=== PATIENT | female | born 1980 | race Caucasian/White ===

== ENCOUNTER 2018-04-30 16:07 | Emergency (ER) | payer OTHER ==
--- NOTE | 2018-04-30 16:50 | EDPHY ---
H & P Time Seen by Provider: 04/30/18 16:42 HPI/ROS: CHIEF COMPLAINT: Anxiety HISTORY OF PRESENT ILLNESS: Patient is a 30-year-old female with a history of anxiety the presents emergency department feeling anxious. The patient states that she has had multiple anxiety attacks over the past few days. She was seen initially by [facility] and that the crisis [facility]. She was sent to the emergency department for medical screening in order to be placed for her anxiety. She denies any suicidal ideation or homicidal ideation. Patient denies drug use. She denies alcohol. REVIEW OF SYSTEMS: 10 systems were reveiwed and are negative with the exception of the elements mentioned in the history of present illness. Past Medical/Surgical History: Includes anxiety Social history: Patient does not smoke. She denies drug use Smoking Status: Former smoker Physical Exam: Vitals noted GENERAL: Well-appearing, in no acute distress, alert. HEENT: Eyes normal to inspection, normal pharynx, no signs of dehydration. NECK: Normal, supple. RESPIRATORY: Clear to auscultation bilaterally, no rales, rhonchi or wheezing. CVS: Regular rate and rhythm, no rubs, murmurs, or gallops. ABDOMEN: Soft, nontender, nondistended, no organomegaly. BACK: Normal to inspection, no CVA tenderness. SKIN: Normal color, no rash, warm, dry. No pallor. EXTREMITIES: No pedal edema, no calf tenderness, no Homans sign or cords, no joint swelling. NEURO/PSYCH: Alert and oriented, normal mood and affect, normal motor sensory exam. No obvious cranial nerve deficit. Constitutional: Initial Vital Signs Temperature (C) 37 C 04/30/18 16:15 Heart Rate 75 04/30/18 16:15 Respiratory Rate 18 04/30/18 16:15 Blood Pressure 124/73 H 04/30/18 16:15 O2 Sat (%) 93 04/30/18 16:15 O2 Delivery Mode Room Air Allergies/Adverse Reactions: buspirone [From BuSpar] Allergy (Verified 04/30/18 16:14) sertraline [From Zoloft] Allergy (Verified 04/30/18 16:14) tramadol [From Ultram] Allergy (Verified 04/30/18 16:14) Home Medications: Medication Instructions Recorded Hydroxyzine HCl 04/30/18 Xanax 04/30/18 Medical Decision Making ED Course/Re-evaluation: In the emergency department I discussed possible etiologies with the patient. I answered all her questions. An IV was placed. Laboratory studies were obtained. CBC, chemistry and tox screen is negative. Staff was notified of the medical clearance. Differential Diagnosis: My differential includes but is not limited to anxiety, depression, psychosis - Data Points Laboratory Results: Laboratory Results 04/30/18 17:17 04/30/18 17:17 04/30/18 04/30/18 04/30/18 17:17 17:17 17:17 WBC 7.75 10^3/uL 10^3/uL (3.80-9.50) RBC 4.04 10^6/uL L 10^6/uL (4.18-5.33) Hgb 13.5 g/dL g/dL (12.6-16.3) Hct 39.7 % % (38.0-47.0) MCV 98.3 fL fL (81.5-99.8) MCH 33.4 pg pg (27.9-34.1) MCHC 34.0 g/dL g/dL (32.4-36.7) RDW 13.7 % % (11.5-15.2) Plt Count 164 10^3/uL 10^3/uL (150-400) MPV 11.2 fL fL (8.7-11.7) Neut % (Auto) 59.3 % % (39.3-74.2) Lymph % (Auto) 27.5 % % (15.0-45.0) Winston % (Auto) 11.4 % % (4.5-13.0) Eos % (Auto) 1.0 % % (0.6-7.6) Baso % (Auto) 0.5 % % (0.3-1.7) Nucleat RBC Rel Count 0.0 % % (0.0-0.2) Absolute Neuts (auto) 4.60 10^3/uL 10^3/uL (1.70-6.50) Absolute Lymphs (auto) 2.13 10^3/uL 10^3/uL (1.00-3.00) Absolute Monos (auto) 0.88 10^3/uL H 10^3/uL (0.30-0.80) Absolute Eos (auto) 0.08 10^3/uL 10^3/uL (0.03-0.40) Absolute Basos (auto) 0.04 10^3/uL 10^3/uL (0.02-0.10) Absolute Nucleated RBC 0.00 10^3/uL 10^3/uL (0-0.01) Immature Gran % 0.3 % % (0.0-1.1) Immature Gran # 0.02 10^3/uL 10^3/uL (0.00-0.10) Sodium 138 mEq/L mEq/L (135-145) Potassium 4.1 mEq/L mEq/L (3.5-5.2) Chloride 109 mEq/L mEq/L (97-110) Carbon Dioxide 20 mEq/l L mEq/l (22-31) Anion Gap 9 mEq/L mEq/L (6-14) BUN 17 mg/dL mg/dL (7-23) Creatinine 0.6 mg/dL mg/dL (0.6-1.0) Estimated GFR > 60 Glucose 98 mg/dL mg/dL (70-100) Calcium 8.9 mg/dL mg/dL (8.5-10.4) Urine Opiates Screen NEGATIVE (NEGATIVE) Urine Barbiturates NEGATIVE (NEGATIVE) Ur Phencyclidine Scrn NEGATIVE (NEGATIVE) Ur Amphetamine Screen NEGATIVE (NEGATIVE) U Benzodiazepines Scrn NEGATIVE (NEGATIVE) Urine Cocaine Screen NEGATIVE (NEGATIVE) U Marijuana (THC) Screen NEGATIVE (NEGATIVE) Ethyl Alcohol < 10 mg/dL mg/dL (0-10) Departure - Departure Disposition: Home, Routine, Self-Care Clinical Impression: Anxiety Condition: Good Instructions: Anxiety (ED) Additional Instructions: Return with increasing anxiety or any other concerns. Referrals: [facility],. [Clinic] - 5-7 days, call for appt.
[2018-04-30 17:55] LABS: PLATELET COUNT 164 10^3/uL (150-400)
[2018-04-30 22:17] VITALS: BP 103/78
== END 2018-04-30 22:13 | disposition home or self-care (01) ==
DX: F41.9 Anxiety disorder, unspecified (principal); Z59.0 Homelessness
CPT/HCPCS: 80305; G0480

== ENCOUNTER 2018-05-12 15:08 | Emergency (ER) | payer MEDICAID ==
[2018-05-12] MEDS ORDERED: DEXAMETHASONE 4 MG/ML VIAL IVP ONE (15:24)
[2018-05-12] MEDS ORDERED: CYCLOBENZAPRINE 10 MG TAB PO ONE (15:24)
[2018-05-12] MEDS ORDERED: LIDOCAINE 4%/MENTHOL 1% PATCH TD ONE (15:24)
[2018-05-12] MEDS ORDERED: KETOROLAC 15 MG/1 ML SDV IVP/IM ONE (15:24)
[2018-05-12] MEDS ORDERED: NS 1,000 ML IV ONE (15:24)
[2018-05-12 15:25] VITALS: BP 112/72
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
--- NOTE | 2018-05-12 15:45 | EDPHY ---
General Time Seen by Provider: 05/12/18 15:09 Initial Vital Signs: Initial Vital Signs Temperature (C) 37.1 C 05/12/18 15:11 Heart Rate 109 H 05/12/18 15:11 Respiratory Rate 18 05/12/18 15:11 Blood Pressure 112/72 05/12/18 15:11 O2 Sat (%) 96 05/12/18 15:11 O2 Delivery Mode Room Air Allergies/Adverse Reactions: buspirone [From BuSpar] Allergy (Verified 04/30/18 20:36) sertraline [From Zoloft] Allergy (Verified 04/30/18 20:36) tramadol [From Ultram] Allergy (Verified 04/30/18 20:36) Home Medications: Medication Instructions Recorded NK [No Known Home Meds] 04/30/18 Departure - Departure Referrals: NONE *PRIMARY CARE P,. [Primary Care Provider] - As per Instructions
[2018-05-12] MEDS ORDERED: HYDROmorphONE/DILAUDID 2 MG/ML INJ IVP ONE (16:33)
[2018-05-12] MEDS ORDERED: PATCH REMOVAL 1 EA PATCH TD SCH (21:00)
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
== END 2018-05-12 18:18 | disposition home or self-care (01) ==
LOC: EDUNIT#
DX: G43.809 Other migraine, not intractable, without status migrainosus (principal); E86.9 Volume depletion, unspecified; F43.10 Post-traumatic stress disorder, unspecified; F41.8 Other specified anxiety disorders; Z59.0 Homelessness
CPT/HCPCS: 96374; J1100; J1170; J1885

== ENCOUNTER 2018-06-19 10:54 | Emergency (ER) | payer MEDICAID ==
--- NOTE | 2018-06-19 11:17 | EDPHY ---
H & P Stated Complaint: LLQ/Lflank pain Time Seen by Provider: 06/19/18 11:11 HPI/ROS: CHIEF COMPLAINT: Left lower quadrant pain since this morning "I think I might be " HISTORY OF PRESENT ILLNESS: 38-year-old homeless female, , last menstrual period 2 months ago, complaining of left lower quadrant pain since this morning , think she may be . No vaginal bleeding or discharge. No urinary abnormality such as dysuria hematuria increased frequency. No back or flank pain. No nausea or vomiting. [PRIMARY CARE PROVIDER:][[facility] ] REVIEW OF SYSTEMS: [10 systems reviewed and negative with the exception of the elements mentioned in the history of present illness] [PAST MEDICAL & SURGICAL HISTORY:] [ ] SOCIAL HISTORY:[ Homeless ] PHYSICAL EXAM (Prior to examination, patient consented to physical exam, hands were washed and my usual and customary physical exam procedures followed) 1) GENERAL: [Well-developed, well-nourished, alert and oriented. Appears to be in no acute distress.] 2) HEAD: [Normocephalic, atraumatic] 3) HEENT: [Pupils equal, round, reactive to light bilaterally. Sclera anicteric. ] [Nasopharynx, oropharynx, clear, no lesions. ][Moist][Dry] mucous membranes. [Ears bilaterally with normal tympanic membranes.] 4) NECK: [Full range of motion, no meningeal signs.] 5) LUNGS: [Clear auscultation bilaterally, no wheezes, no rhonchi, no retractions.] 6) HEART: [Regular rate and rhythm, no murmur, no heave, no gallop.] 7) ABDOMEN: [No guarding, no rebound, no focal tenderness, negative McBurney's, negative Teran's, negative Rovsing's, negative peritoneal sign], 8) MUSCULOSKELETAL: [Moving all extremities, no focal areas of tenderness, no obvious trauma. No peripheral edema or discoloration.] 9) BACK: [No CVA tenderness, no midline vertebral tenderness, no fluctuance, no step-off, no obvious trauma, no visual or palpable abnormality.] 10) SKIN: [No rash, no petechiae.] [11) Psychiatric: Patient is oriented X 3, there is no agitation.] DIFFERENTIAL DIAGNOSIS: [In no particular order including but not limited to ovarian torsion, ovarian cyst, ectopic , intrauterine ] - Personal History Current Tetanus/Diphtheria Vaccine: Yes Tetanus Vaccine Date: April 2017 - Medical/Surgical History Hx Asthma: Yes Hx Chronic Respiratory Disease: Yes Hx Diabetes: No Hx Cardiac Disease: Yes Hx Renal Disease: No Hx Cirrhosis: No Hx Alcoholism: Yes Hx HIV/AIDS: No Hx Splenectomy or Spleen Trauma: No Other PMH: choly, PTSD, anxiety, depression, bronchitis, COPD, - Social History Smoking Status: Former smoker Constitutional: Initial Vital Signs Temperature (C) 36.7 C 06/19/18 11:00 Heart Rate 89 06/19/18 11:00 Respiratory Rate 16 06/19/18 11:00 Blood Pressure 116/75 06/19/18 11:00 O2 Sat (%) 99 06/19/18 11:00 O2 Delivery Mode Room Air Allergies/Adverse Reactions: buspirone [From BuSpar] Allergy (Verified 06/19/18 11:00) codeine Allergy (Verified 06/19/18 11:00) sertraline [From Zoloft] Allergy (Verified 06/19/18 11:00) tramadol [From Ultram] Allergy (Verified 06/19/18 11:00) Home Medications: Medication Instructions Recorded Ibuprofen 600 mg PO Q8 PRN #12 tablet 05/12/18 Gabapentin 06/19/18 Medical Decision Making - Diagnostics Imaging Results: Imaging Impressions Pelvic/Renal Ultrasound 06/19/18 11:31 Impression: Findings are within normal limits. Findings were discussed with Sen Rodriguez PA-C at 12:49, on 06/19/2018. ED Course/Re-evaluation: 12:51 p.m.: Pelvic ultrasound over the staff radiologist is negative for ovarian torsion or ovarian cyst. I discussed with patient her diagnostic results 12:53 p.m.: Re-evaluated the patient. She is sleeping comfortably, easily woken. She has no complaints of pain or discomfort. Re-examined her abdomen which is soft no guarding no rebound, no left lower quadrant pain, no McBurney' s point pain. I discussed her diagnostic results including negative test and her ultrasound which is negative for definitive pathology for her pain. She is currently asymptomatic. Doubt diverticulitis. At this time I do not think that CT imaging is indicated. Informed the patient that if he develops continued or new symptoms to seek immediate medical attention. Given my usual and customary abdominal precautions and instructions. She feels comfortable being discharged. Care of patient under supervision of secondary supervising physician Dr Gomes with whom I discussed case. - Data Points Laboratory Results: Laboratory Results 06/19/18 11:15 06/19/18 11:15 06/19/18 06/19/18 06/19/18 11:15 11:15 11:05 WBC 7.61 10^3/uL 10^3/uL (3.80-9.50) RBC 4.08 10^6/uL L 10^6/uL (4.18-5.33) Hgb 13.8 g/dL g/dL (12.6-16.3) Hct 42.8 % % (38.0-47.0) MCV 104.9 fL H fL (81.5-99.8) MCH 33.8 pg pg (27.9-34.1) MCHC 32.2 g/dL L g/dL (32.4-36.7) RDW 13.3 % % (11.5-15.2) Plt Count 194 10^3/uL 10^3/uL (150-400) MPV 11.3 fL fL (8.7-11.7) Neut % (Auto) 57.4 % % (39.3-74.2) Lymph % (Auto) 29.7 % % (15.0-45.0) Sabine % (Auto) 10.4 % % (4.5-13.0) Eos % (Auto) 1.6 % % (0.6-7.6) Baso % (Auto) 0.5 % % (0.3-1.7) Nucleat RBC Rel Count 0.0 % % (0.0-0.2) Absolute Neuts (auto) 4.37 10^3/uL 10^3/uL (1.70-6.50) Absolute Lymphs (auto) 2.26 10^3/uL 10^3/uL (1.00-3.00) Absolute Monos (auto) 0.79 10^3/uL 10^3/uL (0.30-0.80) Absolute Eos (auto) 0.12 10^3/uL 10^3/uL (0.03-0.40) Absolute Basos (auto) 0.04 10^3/uL 10^3/uL (0.02-0.10) Absolute Nucleated RBC 0.00 10^3/uL 10^3/uL (0-0.01) Immature Gran % 0.4 % % (0.0-1.1) Immature Gran # 0.03 10^3/uL 10^3/uL (0.00-0.10) Sodium 138 mEq/L mEq/L (135-145) Potassium 4.3 mEq/L mEq/L (3.5-5.2) Chloride 103 mEq/L mEq/L (97-110) Carbon Dioxide 26 mEq/l mEq/l (22-31) Anion Gap 9 mEq/L mEq/L (6-14) BUN 20 mg/dL mg/dL (7-23) Creatinine 0.6 mg/dL mg/dL (0.6-1.0) Estimated GFR > 60 Glucose 88 mg/dL mg/dL (70-100) Calcium 9.2 mg/dL mg/dL (8.5-10.4) Urine Color Urine Appearance Urine pH Ur Specific Arpin Urine Protein Urine Ketones Urine Blood Urine Nitrate Urine Bilirubin Urine Urobilinogen Ur Leukocyte Esterase Urine Glucose Urine Test NEGATIVE 06/19/18 11:05 WBC RBC Hgb Hct MCV MCH MCHC RDW Plt Count MPV Neut % (Auto) Lymph % (Auto) Sabine % (Auto) Eos % (Auto) Baso % (Auto) Nucleat RBC Rel Count Absolute Neuts (auto) Absolute Lymphs (auto) Absolute Monos (auto) Absolute Eos (auto) Absolute Basos (auto) Absolute Nucleated RBC Immature Gran % Immature Gran # Sodium Potassium Chloride Carbon Dioxide Anion Gap BUN Creatinine Estimated GFR Glucose Calcium Urine Color YELLOW Urine Appearance CLEAR Urine pH 7.0 (5.0-7.5) Ur Specific Arpin 1.023 (1.002-1.030) Urine Protein NEGATIVE (NEGATIVE) Urine Ketones NEGATIVE (NEGATIVE) Urine Blood NEGATIVE (NEGATIVE) Urine Nitrate NEGATIVE (NEGATIVE) Urine Bilirubin NEGATIVE (NEGATIVE) Urine Urobilinogen NEGATIVE EU EU (0.2-1.0) Ur Leukocyte Esterase NEGATIVE (NEGATIVE) Urine Glucose NEGATIVE (NEGATIVE) Urine Test Point of Care Test Results: Urine Collection Date 06/19/18 Collection Time 11:12 HCG Results Negative Departure - Departure Disposition: Home, Routine, Self-Care Clinical Impression: Abdominal pain Qualifiers: Abdominal location: left lower quadrant Qualified Code(s): R10.32 - Left lower quadrant pain Condition: Good Instructions: Acute Abdominal Pain (ED) Additional Instructions: Seek immediate medical attention if you develop new or worsening symptoms, if you develop fevers, chills, inability to tolerate oral intake or any other symptoms that concerns you. Referrals: [facility],. [Clinic] - 1 day without fail
[2018-06-19 11:36] LABS: PLATELET COUNT 194 10^3/uL (150-400)
[2018-06-19 13:03] VITALS: BP 120/79
== END 2018-06-19 13:08 | disposition home or self-care (01) ==
DX: R10.32 Left lower quadrant pain (principal); Z59.0 Homelessness
CPT/HCPCS: 81025-ER

== ENCOUNTER 2018-07-05 20:48 | Emergency (ER) | payer MEDICAID ==
--- NOTE | 2018-07-05 22:04 | EDPHY ---
H & P Stated Complaint: anxiety Time Seen by Provider: 07/05/18 22:04 HPI/ROS: HPI CHIEF COMPLAINT: Sinus congestion, nasal discharge. HISTORY OF PRESENT ILLNESS: Patient is a 38-year-old female, presents to the emergency room stating, she had sinus congestion, nasal yellow-green discharge. No fever. She reports sinus pressure, when she blows her nose she gets yellow -green discharge. Denies fever. Denies headache, denies chest pain or shortness of breath. She reports that she has had this for close to 2 weeks. Past Surgical History: Significant medical history for COPD, schizophrenia. Social History: Patient denies drugs alcohol tobacco. She moved here 2 months ago from [facility]. Family History: Noncontributory ROS REVIEW OF SYSTEMS: 10 Systems were reviewed and negative with the exception of the elements mentioned in the history of present illness. Exam Constitutional triage nursing summary reviewed, vital signs reviewed, awake/ alert. Appears well nontoxic no acute distress. Eyes normal conjunctivae and sclera, EOMI, PERRLA. HENT nasal turbinate inflammation, no significant discharge drainage from nose. Mild tender palpation over the ethmoid and maxillary sinuses. Posterior pharynx unremarkable, poor dentition, moist mucus membranes, no epistaxis, neck supple/ no meningismus, no raccoon eyes. Respiratory clear to auscultation bilaterally, normal breath sounds, no respiratory distress, no wheezing. Cardiovascular rate normal, regular rhythm, no murmur, no edema, distal pulses normal. Gastrointestinal soft, non-tender, no rebound, no guarding, normal bowel sounds, no distension, no pulsatile mass. Genitourinary no CVA tenderness. Musculoskeletal no midline vertebral tenderness, full range of motion, no calf swelling, no tenderness of extremities, no meningismus, good pulses, neurovascularly intact. Skin pink, warm, & dry, no rash, skin atraumatic. Neurologic awake, alert and oriented x 3, AAOx3, moves all 4 extremities equally, motor intact, sensory intact, CN II-XII intact, normal cerebellar, normal vision, normal speech. Psychiatric normal mood/affect. Heme/Lymph/Immune no lymphadenopathy. Differential Diagnosis: Includes but is not limited to in a particular order acute sinusitis, viral illness, URI. Medical Decision Making: Plan for this patient will give a dose of Mucinex D congestion, Augmentin for sinusitis, and Afrin nasal spray. I discussed follow- up with her primary care doctor. She appears well here in the emergency room in no acute distress nontoxic appearing. Re-evaluation: 1st dose of Mucinex and Augmentin given in the emergency room. As well as Afrin 2 sprays. We discussed return precautions. She understands this and she understands should follow up with primary care doctor Understands should return emergency room she has any worsening symptoms including high fever, vomiting, not doing well. Of note patient's friend at bedside started screaming at me. I tried to calm him down, explained that we would be treating her with antibiotics and D congestion however he continued to yell at me and cursing me. He was asked by security to be removed from the ER. Source: Patient - Personal History Current Tetanus/Diphtheria Vaccine: Yes Current Tetanus Diphtheria and Acellular Pertussis (TDAP): Yes Tetanus Vaccine Date: April 2017 - Medical/Surgical History Hx Asthma: Yes Hx Chronic Respiratory Disease: Yes Hx Diabetes: No Hx Cardiac Disease: Yes Hx Renal Disease: No Hx Cirrhosis: No Hx Alcoholism: Yes Hx HIV/AIDS: No Hx Splenectomy or Spleen Trauma: No Other PMH: choly, PTSD, anxiety, depression, bronchitis, COPD, - Social History Smoking Status: Former smoker Constitutional: Initial Vital Signs Temperature (C) 36.7 C 07/05/18 20:52 Heart Rate 89 07/05/18 20:52 Respiratory Rate 20 07/05/18 20:52 Blood Pressure 97/61 L 07/05/18 20:52 O2 Sat (%) 94 07/05/18 20:52 O2 Delivery Mode Room Air Allergies/Adverse Reactions: buspirone [From BuSpar] Allergy (Verified 07/05/18 21:00) codeine Allergy (Verified 07/05/18 21:00) sertraline [From Zoloft] Allergy (Verified 07/05/18 21:00) tramadol [From Ultram] Allergy (Verified 07/05/18 21:00) Home Medications: Medication Instructions Recorded Ibuprofen 600 mg PO Q8 PRN #12 tablet 05/12/18 Gabapentin 06/19/18 Albuterol 07/05/18 Amoxicillin/Clavulanate Pot 875 mg PO BID #14 tab 07/05/18 [Augmentin 875 MG TAB (*)] guaiFENesin [Guaifenesin ER] 600 mg PO BID #14 tab.er.12h 07/05/18 Medical Decision Making - Data Points Medications Given: Discontinued Medications Amoxicillin/Clavulanate Potassium (Augmentin 875mg) 875 mg PO EDNOW ONE PRN Reason: Protocol Stop: 07/05/18 22:10 Last Admin: 07/05/18 22:18 Dose: 875 mg Guaifenesin (Mucinex) 1,200 mg PO EDNOW ONE Stop: 07/05/18 22:10 Last Admin: 07/05/18 22:17 Dose: 1,200 mg Oxymetazoline HCl (Afrin Nasal [place]) 2 sprays [place] EDNOW ONE Stop: 07/05/18 22:14 Last Admin: 07/05/18 22:18 Dose: 2 spr Departure - Departure Disposition: Home, Routine, Self-Care Clinical Impression: Sinusitis Condition: Good Instructions: Sinusitis (ED) Additional Instructions: 1. Antibiotics as prescribed. 2. Follow up with your primary care doctor 3. Return to the emergency room if worsening symptoms. Referrals: NONE *PRIMARY CARE P,. [Primary Care Provider] - As per Instructions [facility],. [Clinic] - As per Instructions Prescriptions: Amoxicillin/Clavulanate Pot [Augmentin 875 MG TAB (*)] 875 mg PO BID #14 tab guaiFENesin [Guaifenesin ER] 600 mg PO BID #14 tab.er.12h
[2018-07-05] MEDS ORDERED: guaiFENesin 600 MG TAB.ER PO ONE (22:09)
[2018-07-05] MEDS ORDERED: AMOXICILLIN/CLAVULANATE POT 875/125 MG TAB PO ONE (22:09)
[2018-07-05] MEDS ORDERED: OXYMETAZOLINE 30 ML NASAL SPRAY EACHNARE ONE (22:13)
[2018-07-05 22:31] VITALS: BP 98/66
== END 2018-07-05 22:35 | disposition home or self-care (01) ==
LOC: EDUNIT#
DX: J32.9 Chronic sinusitis, unspecified (principal); J44.9 Chronic obstructive pulmonary disease, unspecified; F20.9 Schizophrenia, unspecified

== ENCOUNTER 2018-08-06 12:40 | Emergency (ER) | payer MEDICAID | END 2018-08-06 13:49 | disposition home or self-care (01) ==